=== PATIENT | male | born 1985 | race Caucasian/White ===

== ENCOUNTER 2018-11-15 00:59 | Inpatient (IN) | payer OTHER ==
[2018-11-15] MEDS ORDERED: NORMAL SALINE 1000 ML 1,000 ML IV ONE (03:50)
[2018-11-15] MEDS ORDERED: DIAZEPAM INJ 10 MG/2 ML DISP.SYRIN IV ONE ×3 (03:50→06:55)
[2018-11-15 04:08] LABS: ABSOLUTE EOSINOPHILS # (AUTO) 0.1 10^3/uL (0.0-0.6); ABSOLUTE LYMPHOCYTES (AUTO) 2.3 10^3/uL (0.5-4.7); ABSOLUTE MONOCYTES (AUTO) 0.6 10^3/uL (0.1-1.4); ABSOLUTE NEUT (AUTO) 5.3 10^3/uL (1.7-8.2); BASOPHILS % (AUTO) 0.5 % (0-2); EOSINOPHILS % (AUTO) 0.7 % (0-6); HEMATOCRIT 45.6 % (37.9-51.0); HEMOGLOBIN 16.1 g/dL (13.5-17.0); LYMPHOCYTES % (AUTO) 27.4 % (13-45); MEAN CORPUSCULAR HEMOGLOBIN 34.8 pg (27.0-33.4); MEAN CORPUSCULAR HGB CONC 35.3 g/dL (32.0-36.0); MEAN CORPUSCULAR VOLUME 99 fl (80-97); MONOCYTES % (AUTO) 7.1 % (3-13); PLATELET COUNT 306 10^3/uL (150-450); RED BLOOD COUNT 4.62 10^6/uL (4.35-5.55); SEGMENTED NEUTROPHILS % (AUTO) 64.3 % (42-78); TOTAL CELLS COUNTED % (AUTO) 100 %; WHITE BLOOD COUNT 8.3 10^3/uL (4.0-10.5)
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
[2018-11-15] MEDS ORDERED: LORAZEPAM INJ 2 MG/1 ML VIAL IV ONE (04:39)
[2018-11-15] MEDS ORDERED: THIAMINE HCL 100 MG, FOLIC ACID 1 MG in NORMAL SALINE 250 ML IV ONE (04:40)
[2018-11-15] MEDS ORDERED: FAMOTIDINE INJ/PF 20 MG/2 ML SDV IV ONE (05:06)
[2018-11-15] MEDS ORDERED: THIAMINE HCL INJ 200 MG/2 ML VIAL ONE (05:10)
[2018-11-15] MEDS ORDERED: FOLIC ACID INJ 5 MG/1 ML 10 ML VIAL ONE (05:13)
[2018-11-15] MEDS ORDERED: NICOTINE 21 MG/24 HR PATCH.TD24 TD ONE (05:31)
[2018-11-15] MEDS ORDERED: DIPH/PERTUSS(ACELL)/TETANUS VAC/PF 0.5 ML SYR (>=10YO) IM ONE (05:32)
[2018-11-15 06:26] LABS: APPEARANCE,URINE CLEAR; BILIRUBIN,URINE NEGATIVE (NEGATIVE); COLOR,URINE YELLOW; GLUCOSE, URINE NEGATIVE (NEGATIVE); KETONES,URINE NEGATIVE (NEGATIVE); LEUKOCYTE ESTERASE,URINE NEGATIVE (NEGATIVE); NITRITE,URINE NEGATIVE (NEGATIVE); PROTEIN,URINE 30 mg/dL (NEGATIVE); URINE SPECIFIC GRAVITY 1.027; UROBILINOGEN,URINE NEGATIVE mg/dL (<2.0)
[2018-11-15 06:39] LABS: URINE AMPHETAMINES SCREEN NEGATIVE; URINE BARBITURATES SCREEN NEGATIVE; URINE BENZODIAZEPINES SCREEN NEGATIVE; URINE COCAINE SCREEN NEGATIVE; URINE MARIJUANA (THC) SCREEN NEGATIVE; URINE METHADONE SCREEN NEGATIVE; URINE PHENCYCLIDINE SCREEN NEGATIVE
--- NOTE | 2018-11-15 07:09 | EKG REPORT ---
SEVERITY:- ABNORMAL ECG - SINUS TACHYCARDIA IVCD : Confirmed by: Eric De La Cruz MD 15-Nov-2018 07:08:30
[2018-11-15 07:48] LABS: ALANINE AMINOTRANSFERASE 31 U/L (21-72); ALBUMIN 4.1 g/dL (3.5-5.0); ALCOHOL 137 mg/dL (NONE DETECTED); ALKALINE PHOSPHATASE 104 U/L (38-126); ANION GAP 9 (5-19); ASPARTATE AMINO TRANSFERASE 42 U/L (17-59); BILIRUBIN,DIRECT 0.2 mg/dL (0.0-0.4); BILIRUBIN,TOTAL 0.4 mg/dL (0.2-1.3); BLOOD UREA NITROGEN 14 mg/dL (7-20); CALCIUM 8.6 mg/dL (8.4-10.2); CARBON DIOXIDE 26 mmol/L (22-30); CHLORIDE 110 mmol/L (98-107); GLUCOSE 93 mg/dL (75-110); SODIUM 145.4 mmol/L (137-145); TOTAL PROTEIN 6.9 g/dL (6.3-8.2)
[2018-11-15 07:49] LABS: ACETAMINOPHEN < 10 ug/mL (10-30)
[2018-11-15] MEDS ORDERED: ONDANSETRON HCL INJ/PF 4 MG/2 ML SDV IV PRN (09:32)
[2018-11-15] MEDS ORDERED: ACETAMINOPHEN 325 MG TABLET PO PRN (09:32)
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
[2018-11-15] MEDS ORDERED: LORAZEPAM INJ 2 MG/1 ML VIAL IV SCH (10:00)
[2018-11-15] MEDS: FAMOTIDINE 20 MG TABLET PO SCH ×2 (10:42→21:45)
[2018-11-15] MEDS: ENOXAPARIN SODIUM INJ 40 MG/0.4 ML DISP.SYRIN SUBCUT SCH (10:42)
[2018-11-15] MEDS: DIAZEPAM INJ 10 MG/2 ML DISP.SYRIN IV SCH ×6 (11:55→21:45)
[2018-11-15] MEDS: NORMAL SALINE 1000 ML 1,000 ML IV PRN (11:59)
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
[2018-11-15 12:35] LABS: URINE AMPHETAMINES SCREEN NEGATIVE; URINE BARBITURATES SCREEN NEGATIVE; URINE BENZODIAZEPINES SCREEN NEGATIVE; URINE COCAINE SCREEN NEGATIVE; URINE MARIJUANA (THC) SCREEN NEGATIVE; URINE METHADONE SCREEN NEGATIVE; URINE PHENCYCLIDINE SCREEN NEGATIVE
[2018-11-15] MEDS: LORAZEPAM INJ 2 MG/1 ML VIAL IV PRN ×2 (15:08→19:45)
[2018-11-15] MEDS: HYDROMORPHONE HCL INJ/PF 2 MG/ML AMPULE IV PRN (16:52)
--- NOTE | 2018-11-15 18:04 | RADIOLOGY REPORT (SQ) ---
EXAM DESCRIPTION: CT ABD/PELVIS NO ORAL OR IV COMPLETED DATE/TIME: 11/15/2018 5:42 pm REASON FOR STUDY: abd pain COMPARISON: None. TECHNIQUE: CT scan of the abdomen and pelvis performed without intravenous or oral contrast. Images reviewed with lung, soft tissue, and bone windows. Reconstructed coronal and sagittal MPR images revi ewed. All images stored on PACS. All CT scanners at this facility use dose modulation, iterative reconstruction, and/or weight based d osing when appropriate to reduce radiation dose to as low as reasonably achievable (ALARA). [facility]: Dose Right [facility]: CareDose [facility]: Dose Right [facility]: Teradose 4D [facility]: Smart Trips n Salsa RADIATION DOSE: CT Rad equipment meets quality standard of care and radiation dose reduction techniq ues were employed. CTDIvol: 13.2 mGy. DLP: 753 mGy-cm.mGy. LIMITATIONS: None. FINDINGS: LOWER CHEST: No significant findings. No nodules or infiltrates. NON-CONTRASTED LIVER, SPLEEN, ADRENALS: Evaluation limited by lack of IV contrast. No identified sign ificant masses. PANCREAS: No masses. No peripancreatic inflammatory changes. GALLBLADDER: Contracted. No stones. RIGHT KIDNEY AND URETER: No suspicious masses. Assessment limited by lack of IV contrast. No signif icant calcifications. No hydronephrosis or hydroureter. LEFT KIDNEY AND URETER: No suspicious masses. Assessment limited by lack of IV contrast. No signifi cant calcifications. No hydronephrosis or hydroureter. AORTA AND RETROPERITONEUM: No aneurysm. No retroperitoneal masses or adenopathy. BOWEL AND PERITONEAL CAVITY: Mild diverticulosis. No acute inflammation. No obvious bowel mass. APPENDIX: Normal. PELVIS, BLADDER, AND ABDOMINAL WALL:No abnormal masses. No free fluid. Bladder normal. BONES: No significant findings. OTHER: No other significant finding. IMPRESSION: Mild diverticulosis coli. No acute findings in the abdomen or pelvis. COMMENT: Quality ID # [id number]: Final reports with documentation of one or more dose reduction techniques (e.g., Automated exposure control, adjustment of the mA and/or kV according to patient size, use of iterative reconstruction technique) TECHNICAL DOCUMENTATION: JOB ID: [id number] [employer]- All Rights Reserved Reading location - IP/workstation name: [email or web address]
[2018-11-15] MEDS: NORMAL SALINE 1000 ML 1,000 ML with POTASSIUM CHLORIDE 20 MEQ, MAGNESIUM SULFATE 8 MEQ,... IV SCH ×5 (18:08)
[2018-11-15 18:21] LABS: LIPASE 107.7 U/L (23-300)
[2018-11-15] MEDS ORDERED: NICOTINE 7 MG/24 HR PATCH.TD24 TD ONE (22:45)
[2018-11-16] MEDS: DIAZEPAM INJ 10 MG/2 ML DISP.SYRIN IV SCH ×6 (00:30→11:07)
[2018-11-16] MEDS: HYDROMORPHONE HCL INJ/PF 2 MG/ML AMPULE IV PRN ×6 (00:50→23:25)
[2018-11-16] MEDS: LORAZEPAM INJ 2 MG/1 ML VIAL IV PRN ×6 (00:51→22:03)
[2018-11-16] MEDS ORDERED: PROMETHAZINE HCL INJ 25 MG/1 ML VIAL ONE (07:16)
[2018-11-16] MEDS: PROMETHAZINE HCL INJ 25 MG/1 ML VIAL IV PRN ×2 (07:25→15:22)
[2018-11-16] MEDS ORDERED: HYDROMORPHONE HCL INJ/PF 2 MG/ML AMPULE IV PRN (07:28)
[2018-11-16] MEDS ORDERED: LORAZEPAM INJ 2 MG/1 ML VIAL IV PRN (07:29)
[2018-11-16] MEDS ORDERED: HYDROMORPHONE HCL INJ/PF 2 MG/ML AMPULE ONE (07:29)
[2018-11-16 07:53] LABS: ABSOLUTE EOSINOPHILS # (AUTO) 0.1 10^3/uL (0.0-0.6); ABSOLUTE LYMPHOCYTES (AUTO) 1.3 10^3/uL (0.5-4.7); ABSOLUTE NEUT (AUTO) 4.5 10^3/uL (1.7-8.2); BASOPHILS % (AUTO) 0.3 % (0-2); EOSINOPHILS % (AUTO) 1.9 % (0-6); HEMATOCRIT 38.3 % (37.9-51.0); LYMPHOCYTES % (AUTO) 18.6 % (13-45); MEAN CORPUSCULAR HEMOGLOBIN 34.9 pg (27.0-33.4); MEAN CORPUSCULAR HGB CONC 34.9 g/dL (32.0-36.0); MEAN CORPUSCULAR VOLUME 100 fl (80-97); MONOCYTES % (AUTO) 14.1 % (3-13); PLATELET COUNT 238 10^3/uL (150-450); RED BLOOD COUNT 3.83 10^6/uL (4.35-5.55); SEGMENTED NEUTROPHILS % (AUTO) 65.1 % (42-78); TOTAL CELLS COUNTED % (AUTO) 100 %
[2018-11-16 07:55] LABS: HEMOGLOBIN 13.3 g/dL (13.5-17.0)
[2018-11-16 07:56] LABS: PROTHROMBIN TIME 12.7 SEC (11.4-15.4)
[2018-11-16 08:14] LABS: ALANINE AMINOTRANSFERASE 36 U/L (21-72); ALBUMIN 3.7 g/dL (3.5-5.0); ALKALINE PHOSPHATASE 103 U/L (38-126); ANION GAP 7 (5-19); ASPARTATE AMINO TRANSFERASE 45 U/L (17-59); BILIRUBIN,DIRECT 0.3 mg/dL (0.0-0.4); BILIRUBIN,TOTAL 1.1 mg/dL (0.2-1.3); BLOOD UREA NITROGEN 9 mg/dL (7-20); CALCIUM 9.1 mg/dL (8.4-10.2); CARBON DIOXIDE 24 mmol/L (22-30); CHLORIDE 109 mmol/L (98-107); CHOLESTEROL 174.56 mg/dL (0-200); GLUCOSE 93 mg/dL (75-110); POTASSIUM 3.6 mmol/L (3.6-5.0); SODIUM 140.3 mmol/L (137-145); TOTAL PROTEIN 6.2 g/dL (6.3-8.2); TRIGLYCERIDES 128 mg/dL (<150)
[2018-11-16 08:25] LABS: DIRECT LDL 117 mg/dL (<100)
[2018-11-16] MEDS: FAMOTIDINE 20 MG TABLET PO SCH ×2 (09:09→22:03)
[2018-11-16] MEDS: NICOTINE 7 MG/24 HR PATCH.TD24 TD SCH (09:09)
[2018-11-16] MEDS: ENOXAPARIN SODIUM INJ 40 MG/0.4 ML DISP.SYRIN SUBCUT SCH (09:10)
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
[2018-11-16] MEDS ORDERED: ONDANSETRON HCL INJ/PF 4 MG/2 ML SDV IV PRN (11:30)
[2018-11-16] MEDS: NORMAL SALINE 1000 ML 1,000 ML IV PRN (12:40)
[2018-11-16] MEDS: NORMAL SALINE 1000 ML 1,000 ML with POTASSIUM CHLORIDE 20 MEQ, MAGNESIUM SULFATE 8 MEQ,... IV SCH ×5 (17:41)
[2018-11-17] MEDS: LORAZEPAM INJ 2 MG/1 ML VIAL IV PRN ×6 (00:03→19:32)
[2018-11-17] MEDS ORDERED: CLONAZEPAM 1 MG TABLET PO PRN (02:03)
[2018-11-17] MEDS ORDERED: CLONAZEPAM 1 MG TABLET PO ONE (02:15)
[2018-11-17] MEDS: HYDROMORPHONE HCL INJ/PF 2 MG/ML AMPULE IV PRN ×5 (03:48→18:00)
[2018-11-17 05:42] LABS: ABSOLUTE EOSINOPHILS # (AUTO) 0.2 10^3/uL (0.0-0.6); ABSOLUTE LYMPHOCYTES (AUTO) 1.4 10^3/uL (0.5-4.7); ABSOLUTE MONOCYTES (AUTO) 0.8 10^3/uL (0.1-1.4); ABSOLUTE NEUT (AUTO) 4.2 10^3/uL (1.7-8.2); BASOPHILS % (AUTO) 0.3 % (0-2); EOSINOPHILS % (AUTO) 3.7 % (0-6); HEMATOCRIT 40.4 % (37.9-51.0); HEMOGLOBIN 13.9 g/dL (13.5-17.0); LYMPHOCYTES % (AUTO) 21.2 % (13-45); MEAN CORPUSCULAR HEMOGLOBIN 34.4 pg (27.0-33.4); MEAN CORPUSCULAR HGB CONC 34.3 g/dL (32.0-36.0); MEAN CORPUSCULAR VOLUME 100 fl (80-97); MONOCYTES % (AUTO) 12.3 % (3-13); PLATELET COUNT 230 10^3/uL (150-450); RED BLOOD COUNT 4.03 10^6/uL (4.35-5.55); RED CELL DISTRIBUTION WIDTH 13.1 % (11.5-14.0); SEGMENTED NEUTROPHILS % (AUTO) 62.5 % (42-78); TOTAL CELLS COUNTED % (AUTO) 100 %; WHITE BLOOD COUNT 6.7 10^3/uL (4.0-10.5)
[2018-11-17 06:07] LABS: ALANINE AMINOTRANSFERASE 47 U/L (21-72); ALBUMIN 4.3 g/dL (3.5-5.0); ALKALINE PHOSPHATASE 108 U/L (38-126); ANION GAP 9 (5-19); ASPARTATE AMINO TRANSFERASE 41 U/L (17-59); BILIRUBIN,DIRECT 0.3 mg/dL (0.0-0.4); BILIRUBIN,TOTAL 0.6 mg/dL (0.2-1.3); BLOOD UREA NITROGEN 12 mg/dL (7-20); CALCIUM 9.3 mg/dL (8.4-10.2); CARBON DIOXIDE 28 mmol/L (22-30); CHLORIDE 106 mmol/L (98-107); GLUCOSE 100 mg/dL (75-110); POTASSIUM 4.3 mmol/L (3.6-5.0); SODIUM 142.8 mmol/L (137-145)
[2018-11-17] MEDS: PROMETHAZINE HCL INJ 25 MG/1 ML VIAL IV PRN ×4 (07:57→21:09)
--- NOTE | 2018-11-17 09:21 | PDOC PROGRESS REPORT ---
Subjective Progress Note for:: 11/17/18 Subjective:: 11/16/2018 83-year-old male came to the hospital for anxiety and alcohol withdrawal symptoms. He still complaining of anxiety and agitation getting diazepam Ativan on regular basis, is also complaining of severe abdominal pain she is getting Dilaudid every 4 as needed. Patient is afebrile. No acute events in the last 24 hours. 11/17/2018-acute events in the last 24 hours. Afebrile. Last night he is complaining of increased anxiety IV 81 was switched to clonazepam but the patient states it is not helping him at all he wants to go back on Ativan IV every 2 hours. Reason For Visit: ALCOHOL WITHDRAWL Physical Exam Vital Signs: Temp Pulse Resp BP Pulse Ox 98.6 F 73 16 141/94 H 100 11/16/18 23:12 11/17/18 02:00 11/16/18 23:12 11/16/18 23:12 11/16/18 23:12 Intake & Output 11/16/18 11/17/18 11/18/18 06:59 06:59 06:59 Intake Total 1251.2 2674 Output Total 1060 Balance 1251.2 1614 Weight 101.7 kg 102.4 kg General appearance: PRESENT: no acute distress Head exam: PRESENT: atraumatic Eye exam: PRESENT: PERRLA Neck exam: ABSENT: carotid bruit, JVD, lymphadenopathy, thyromegaly Respiratory exam: PRESENT: clear to auscultation dina. ABSENT: rales, rhonchi, wheezes Cardiovascular exam: PRESENT: RRR. ABSENT: diastolic murmur, rubs, systolic murmur GI/Abdominal exam: PRESENT: normal bowel sounds, soft. ABSENT: distended, guarding, mass, organolmegaly, rebound, tenderness Extremities exam: PRESENT: full ROM. ABSENT: calf tenderness, clubbing, pedal edema Neurological exam: PRESENT: alert, awake, oriented to person, oriented to place, oriented to time, oriented to situation, CN II-XII grossly intact. ABSENT: motor sensory deficit Psychiatric exam: PRESENT: appropriate affect, normal mood. ABSENT: homicidal ideation, suicidal ideation Results Laboratory Results: 11/17/18 04:54 11/17/18 04:54 11/17/18 11/17/18 04:54 04:54 WBC 6.7 RBC 4.03 L Hgb 13.9 Hct 40.4 MCV 100 H MCH 34.4 H MCHC 34.3 RDW 13.1 Plt Count 230 Seg Neutrophils % 62.5 Lymphocytes % 21.2 Monocytes % 12.3 Eosinophils % 3.7 Basophils % 0.3 Absolute Neutrophils 4.2 Absolute Lymphocytes 1.4 Absolute Monocytes 0.8 Absolute Eosinophils 0.2 Absolute Basophils 0.0 Sodium 142.8 Potassium 4.3 Chloride 106 Carbon Dioxide 28 Anion Gap 9 BUN 12 Creatinine 0.93 Est GFR ( Amer) > 60 Est GFR (Non-Af Amer) > 60 Glucose 100 Calcium 9.3 Magnesium 2.2 Total Bilirubin 0.6 AST 41 ALT 47 Alkaline Phosphatase 108 Total Protein 7.0 Albumin 4.3 Impressions: Abdomen/Pelvis CT 11/15/18 00:00 IMPRESSION: Mild diverticulosis coli. No acute findings in the abdomen or pelvis. Assessment & Plan - Diagnosis (1) Alcohol withdrawal Qualifiers: Complication of substance-induced condition: uncomplicated Qualified Code(s): F10.230 - Alcohol dependence with withdrawal, uncomplicated Is this a current diagnosis for this admission?: Yes Plan: 11/15/2018-managed to put him in IMCU. Put him on regular diet IV fluids at 75 cc/h. Started on banana bag daily. Aspiration,fall ,seizure precautions were in place. Started on diazepam 5 mg IV every 2 hours as needed for agitation. Also started on Ativan 1 mg IV every 4 as needed for agitation. Watch for DTs. daily labs were requested. alcohol counseling was provided. Started on famotidine 20 mg p.o. twice daily for GI prophylaxis. Psych consult was requested. 11/16/2018-no acute events in the last 24 hours patient given the history of drinking half a gallon of vodka for the last 4-6 months so far no withdrawal symptoms are noticed he is on diazepam IV as needed and Ativan IV as needed patient states the hand is burning every time is getting the diazepam he prefers to be on Ativan every 2 hours as needed, I agreed with this request. He is also getting banana bag on daily basis. The labs are looking okay today. Psych cons ult was done they are going to follow the patient as an outpatient,no medication recommendations were made at this time. 11/17/2018-patient has history of heavy alcohol use. And be watching for DTs. He is complaining of anxiety and agitation last night. We are going to put him back on IV Ativan every 2 hours as needed. Is also getting banana bag daily. Labs are stable. Psych consult was done no new recommendations were made. plan is to continue the present management. (2) ADHD Is this a current diagnosis for this admission?: Yes Plan: 11/15/2018-patient is given the history of ADHD on Adderall at home. We do not have Adderall available in the pharmacy I spoke to the pharmacist the plan is to request a family members to bring the Adderall to the hospital, so we can restart the medication while he was in the hospital. 11/16/2018-patient has history of ADHD on Adderall at home unfortunately we do not have it in the formulary I spoke to the pharmacist and they agreed that patient can take his home medication. 11/17/2018-we do not have it at all in the pharmacy. Patient can take his home medications during the hospital stay. (3) Smoker Is this a current diagnosis for this admission?: Yes Plan: 11/15/2018-patient is a daily smoker, smoking counseling was provided for more than 10 minutes. Uncle advised to quit smoking. 11/16/2018-patient has history of chronic smoking is a nicotine patch smoking counseling was provided. 11/17/2018-history of chronic smoking was placed on nicotine patch 21 mg daily. (4) Depression Is this a current diagnosis for this admission?: Yes Plan: 11/15/2018-patient lost his 6 months ago. Started drinking heavily since then. Probably may be underlying depression. Psych consult was requested. Patient denies any depression symptoms. 11/16/2018-during the examination in the ER is complaining of depression because he is lost his a few months ago psych consult was done no medication recommendations were made. She denies any depression symptoms today. 11/17/2018 psych consult was done no medication recommendations were made. Zachary crane denies any depression symptoms. - Time Time Spent with patient: 15-24 minutes Smoking Cessation Education: over 10 minutes Medications reviewed and adjusted accordingly: Yes Anticipated discharge: Home
[2018-11-17] MEDS: FAMOTIDINE 20 MG TABLET PO SCH ×2 (09:48→21:09)
[2018-11-17] MEDS: NICOTINE 7 MG/24 HR PATCH.TD24 TD SCH (09:48)
[2018-11-17] MEDS: ENOXAPARIN SODIUM INJ 40 MG/0.4 ML DISP.SYRIN SUBCUT SCH (09:49)
[2018-11-17] MEDS: NORMAL SALINE 1000 ML 1,000 ML IV PRN (11:35)
[2018-11-17] MEDS: DIAZEPAM INJ 10 MG/2 ML DISP.SYRIN IV PRN ×2 (15:00→21:09)
--- NOTE | 2018-11-17 17:04 | EKG REPORT ---
SEVERITY:- NORMAL ECG - SINUS RHYTHM : Confirmed by: Eric De La Cruz MD 17-Nov-2018 17:03:36
[2018-11-17] MEDS: NORMAL SALINE 1000 ML 1,000 ML with POTASSIUM CHLORIDE 20 MEQ, MAGNESIUM SULFATE 8 MEQ,... IV SCH ×5 (19:39)
[2018-11-17] MEDS: DIAZEPAM 5 MG TABLET PO SCH (21:30)
[2018-11-17] MEDS ORDERED: KETOROLAC TROMETHAMINE 60 MG/2 ML SDV IM ONE (22:00)
[2018-11-17] MEDS: MORPHINE SULFATE 10 MG/ML INJ IV PRN (22:30)
[2018-11-18] MEDS: MORPHINE SULFATE 10 MG/ML INJ IV PRN ×8 (00:26→22:39)
[2018-11-18] MEDS: DIAZEPAM 5 MG TABLET PO SCH ×6 (01:02→22:46)
[2018-11-18] MEDS: KETOROLAC TROMETHAMINE INJ/PF 30 MG/1 ML SDV IV SCH ×3 (05:02→18:29)
--- NOTE | 2018-11-18 09:32 | PDOC PROGRESS REPORT ---
Subjective Progress Note for:: 11/18/18 Subjective:: 11/16/2018 83-year-old male came to the hospital for anxiety and alcohol withdrawal symptoms. He still complaining of anxiety and agitation getting diazepam Ativan on regular basis, is also complaining of severe abdominal pain she is getting Dilaudid every 4 as needed. Patient is afebrile. No acute events in the last 24 hours. 11/17/2018-acute events in the last 24 hours. Afebrile. Last night he is complaining of increased anxiety IV ATIVAN was switched to clonazepam but the patient states it is not helping him at all he wants to go back on Ativan IV every 2 hours. 09/2019-no acute events in the last 24 hours. Patient is afebrile. Last night he complained that Dilaudid is not working anymore and medication was changed to IV morphine. Patient is pain-free this morning. Reason For Visit: ALCOHOL WITHDRAWL Physical Exam Vital Signs: Temp Pulse Resp BP Pulse Ox 97.7 F 75 16 122/71 99 11/18/18 03:49 11/18/18 07:00 11/18/18 03:49 11/18/18 03:49 11/18/18 03:49 Intake & Output 11/17/18 11/18/18 11/19/18 06:59 06:59 06:59 Intake Total 2674 3474 Output Total 1060 2975 Balance 1614 499 Weight 102.4 kg 101.5 kg General appearance: PRESENT: no acute distress Head exam: PRESENT: atraumatic Eye exam: PRESENT: PERRLA Mouth exam: PRESENT: moist Teeth exam: PRESENT: poor dentation Neck exam: ABSENT: carotid bruit, JVD, lymphadenopathy, thyromegaly Respiratory exam: PRESENT: clear to auscultation dina. ABSENT: rales, rhonchi, wheezes Cardiovascular exam: PRESENT: RRR. ABSENT: diastolic murmur, rubs, systolic mu rmur GI/Abdominal exam: PRESENT: normal bowel sounds, soft. ABSENT: distended, guarding, mass, organolmegaly, rebound, tenderness Extremities exam: PRESENT: full ROM. ABSENT: calf tenderness, clubbing, pedal edema Neurological exam: PRESENT: alert, awake, oriented to person, oriented to place, oriented to time, oriented to situation, CN II-XII grossly intact. ABSENT: motor sensory deficit Psychiatric exam: PRESENT: appropriate affect, normal mood. ABSENT: homicidal ideation, suicidal ideation Results Laboratory Results: 11/17/18 04:54 11/17/18 04:54 Impressions: Abdomen/Pelvis CT 11/15/18 00:00 IMPRESSION: Mild diverticulosis coli. No acute findings in the abdomen or pelvis. Assessment & Plan - Diagnosis (1) Alcohol withdrawal Qualifiers: Complication of substance-induced condition: uncomplicated Qualified Code(s): F10.230 - Alcohol dependence with withdrawal, uncomplicated Is this a current diagnosis for this admission?: Yes Plan: 11/15/2018-managed to put him in IMCU. Put him on regular diet IV fluids at 75 cc/h. Started on banana bag daily. Aspiration,fall ,seizure precautions were in place. Started on diazepam 5 mg IV every 2 hours as needed for agitation. Also started on Ativan 1 mg IV every 4 as needed for agitation. Watch for DTs. daily labs were requested. alcohol counseling was provided. Started on famotidine 20 mg p.o. twice daily for GI prophylaxis. Psych consult was requested. 11/16/2018-no acute events in the last 24 hours patient given the history of drinking half a gallon of vodka for the last 4-6 months so far no withdrawal symptoms are noticed he is on diazepam IV as needed and Ativan IV as needed patient states the hand is burning every time is getting the diazepam he prefers to be on Ativan every 2 hours as needed, I agreed with this request. He is also getting banana bag on daily basis. The labs are looking okay today. Psych consult was done they are going to follow the patient as an outpatient,no medication recommendations were made at this time. 11/17/2018-patient has history of heavy alcohol use. And be watching for DTs. He is complaining of anxiety and agitation last night. We are going to put him back on IV Ativan every 2 hours as needed. Is also getting banana bag daily. Labs are stable. Psych consult was done no new recommendations were made. plan is to continue the present management. 11/18/2018-no acute events in the last 24 hours since yesterday patient is feeling little bit jittery with increased is 81 doses frequency to q. one hour as needed no issues after the his pain is also controlled still watching for the DTs discussed with the patient for more than 15 minutes need to cut down alcohol intake. Also advised him to follow-up with Alcoholic Anonymous group. Plan is to continue the present management. (2) ADHD Is this a current diagnosis for this admission?: Yes Plan: 11/15/2018-patient is given the history of ADHD on Adderall at home. We do not have Adderall available in the pharmacy I spoke to the pharmacist the plan is to request a family members to bring the Adderall to the hospital, so we can restart the medication while he was in the hospital. 11/16/2018-patient has history of ADHD on Adderall at home unfortunately we do not have it in the formulary I spoke to the pharmacist and they agreed that patient can take his home medication. 11/17/2018-we do not have it at all in the pharmacy. Patient can take his home medications during the hospital stay. 11/18/2018 patient has history of ADHD on Adderall. We do not carry that medication in the hospital here it is okay for me for the patient to take the home Adderall. (3) Smoker Is this a current diagnosis for this admission?: Yes Plan: 11/15/2018-patient is a daily smoker, smoking counseling was provided for more than 10 minutes. Uncle advised to quit smoking. 11/16/2018-patient has history of chronic smoking is a nicotine patch smoking counseling was provided. 11/17/2018-history of chronic smoking was placed on nicotine patch 21 mg daily. 11/18/2018 patient has a chronic history of smoking again today smoking counseling was provided strongly advised him to quit smoking. (4) Depression Is this a current diagnosis for this admission?: Yes Plan: 11/15/2018-patient lost his 6 months ago. Started drinking heavily since then. Probably may be underlying depression. Psych consult was requested. Patient denies any depression symptoms. 11/16/2018-during the examination in the ER is complaining of depression because he is lost his a few months ago psych consult was done no medication recommendations were made. She denies any depression symptoms today. 11/17/2018 psych consult was done no medication recommendations were made. Patient denies any depression symptoms. 11/18/2018-no complaints of depression during the hospital stay. Psych consult was done no medication recommendations. (5) Abdominal pain Is this a current diagnosis for this admission?: Yes Plan: 11/18/2018-patient is still complaining of abdominal pain she is getting Dilaudid and last night as per the patient is not working anymore presently he is on morphine IV. Plan is to continue the present management. - Time Time Spent with patient: 15-24 minutes Smoking Cessation Education: over 10 minutes Medications reviewed and adjusted accordingly: Yes Anticipated discharge: Home
[2018-11-18] MEDS: DIAZEPAM INJ 10 MG/2 ML DISP.SYRIN IV PRN ×8 (10:49→22:39)
[2018-11-18] MEDS: PROMETHAZINE HCL INJ 25 MG/1 ML VIAL IV PRN ×2 (13:21→22:40)
[2018-11-18] MEDS: ENOXAPARIN SODIUM INJ 40 MG/0.4 ML DISP.SYRIN SUBCUT SCH (13:24)
[2018-11-18] MEDS: FAMOTIDINE 20 MG TABLET PO SCH ×2 (13:24→22:40)
[2018-11-18] MEDS: NICOTINE 7 MG/24 HR PATCH.TD24 TD SCH (13:25)
[2018-11-18] MEDS: NORMAL SALINE 1000 ML 1,000 ML IV PRN (13:29)
[2018-11-18] MEDS ORDERED: DIPHENHYDRAMINE HCL 50 MG/ML VIAL ONE (15:20)
[2018-11-18] MEDS: NORMAL SALINE 1000 ML 1,000 ML with POTASSIUM CHLORIDE 20 MEQ, MAGNESIUM SULFATE 8 MEQ,... IV SCH ×5 (19:48)
[2018-11-18] MEDS: ADDERALL 10 MG PO SCH (22:52)
[2018-11-19] MEDS: KETOROLAC TROMETHAMINE INJ/PF 30 MG/1 ML SDV IV SCH ×3 (00:26→13:57)
[2018-11-19] MEDS: DIAZEPAM INJ 10 MG/2 ML DISP.SYRIN IV PRN ×5 (00:28→19:50)
[2018-11-19] MEDS: MORPHINE SULFATE 10 MG/ML INJ IV PRN ×7 (00:29→18:28)
[2018-11-19] MEDS: DIAZEPAM 5 MG TABLET PO SCH ×2 (02:38→05:27)
[2018-11-19] MEDS: ADDERALL 10 MG PO SCH ×3 (05:28→21:08)
[2018-11-19 05:59] LABS: ABSOLUTE EOSINOPHILS # (AUTO) 0.2 10^3/uL (0.0-0.6); ABSOLUTE LYMPHOCYTES (AUTO) 1.7 10^3/uL (0.5-4.7); ABSOLUTE MONOCYTES (AUTO) 0.9 10^3/uL (0.1-1.4); ABSOLUTE NEUT (AUTO) 5.2 10^3/uL (1.7-8.2); BASOPHILS % (AUTO) 0.3 % (0-2); EOSINOPHILS % (AUTO) 2.8 % (0-6); HEMATOCRIT 41.6 % (37.9-51.0); HEMOGLOBIN 14.5 g/dL (13.5-17.0); LYMPHOCYTES % (AUTO) 21.2 % (13-45); MEAN CORPUSCULAR HEMOGLOBIN 35.1 pg (27.0-33.4); MEAN CORPUSCULAR HGB CONC 34.8 g/dL (32.0-36.0); MEAN CORPUSCULAR VOLUME 101 fl (80-97); MONOCYTES % (AUTO) 10.7 % (3-13); PLATELET COUNT 215 10^3/uL (150-450); RED BLOOD COUNT 4.12 10^6/uL (4.35-5.55); RED CELL DISTRIBUTION WIDTH 13.1 % (11.5-14.0); TOTAL CELLS COUNTED % (AUTO) 100 %
[2018-11-19 06:27] LABS: ALANINE AMINOTRANSFERASE 63 U/L (21-72); ALBUMIN 4.5 g/dL (3.5-5.0); ALKALINE PHOSPHATASE 93 U/L (38-126); ANION GAP 5 (5-19); ASPARTATE AMINO TRANSFERASE 47 U/L (17-59); BILIRUBIN,DIRECT 0.2 mg/dL (0.0-0.4); BILIRUBIN,TOTAL 0.6 mg/dL (0.2-1.3); BLOOD UREA NITROGEN 13 mg/dL (7-20); CALCIUM 9.4 mg/dL (8.4-10.2); CARBON DIOXIDE 30 mmol/L (22-30); CHLORIDE 106 mmol/L (98-107); GLUCOSE 89 mg/dL (75-110); POTASSIUM 4.3 mmol/L (3.6-5.0); SODIUM 141.4 mmol/L (137-145)
--- NOTE | 2018-11-19 08:58 | PDOC PROGRESS REPORT ---
Subjective Progress Note for:: 11/19/18 Subjective:: 11/16/2018 83-year-old male came to the hospital for anxiety and alcohol withdrawal symptoms. He still complaining of anxiety and agitation getting diazepam Ativan on regular basis, is also complaining of severe abdominal pain she is getting Dilaudid every 4 as needed. Patient is afebrile. No acute events in the last 24 hours. 11/17/2018-acute events in the last 24 hours. Afebrile. Last night he is complaining of increased anxiety IV ATIVAN was switched to clonazepam but the patient states it is not helping him at all he wants to go back on Ativan IV every 2 hours. 11/18/2018-no acute events in the last 24 hours. Patient is afebrile. Last night he complained that Dilaudid is not working anymore and medication was changed to IV morphine. Patient is pain-free this morning. 11/19/2018-no acute events in the last 24 hours. Patient is afebrile. Patient complaining of lack of sleep last night. I started him on zolpidem 10 mg p.o. nightly. Reason For Visit: ALCOHOL WITHDRAWL Physical Exam Vital Signs: Temp Pulse Resp BP Pulse Ox 97.7 F 97 20 144/99 H 100 11/19/18 04:16 11/19/18 04:16 11/19/18 04:16 11/19/18 04:16 11/19/18 04:16 Intake & Output 11/18/18 11/19/18 11/20/18 06:59 06:59 06:59 Intake Total 3474 3834 Output Total 2975 1400 Balance 499 2434 Weight 101.5 kg 102.8 kg General appearance: PRESENT: no acute distress Head exam: PRESENT: atraumatic Eye exam: PRESENT: PERRLA Mouth exam: PRESENT: moist Neck exam: ABSENT: carotid bruit, JVD, lymphadenopathy, thyromegaly Respiratory exam: PRESENT: clear to auscultation dina. ABSENT: rales, rhonchi, wheezes Pulses: PRESENT: normal dorsalis pedis pul GI/Abdominal exam: PRESENT: normal bowel sounds, soft. ABSENT: distended, guarding, mass, organolmegaly, rebound, tenderness Extremities exam: PRESENT: full ROM. ABSENT: calf tenderness, clubbing, pedal edema Neurological exam: PRESENT: alert, awake, oriented to person, oriented to place, oriented to time, oriented to situation, CN II-XII grossly intact. ABSENT: motor sensory deficit Psychiatric exam: PRESENT: appropriate affect, normal mood. ABSENT: homicidal ideation, suicidal ideation Results Laboratory Results: 11/19/18 05:38 11/19/18 05:38 11/19/18 11/19/18 05:38 05:38 WBC 8.0 RBC 4.12 L Hgb 14.5 Hct 41.6 MCV 101 H MCH 35.1 H MCHC 34.8 RDW 13.1 Plt Count 215 Seg Neutrophils % 65.0 Lymphocytes % 21.2 Monocytes % 10.7 Eosinophils % 2.8 Basophils % 0.3 Absolute Neutrophils 5.2 Absolute Lymphocytes 1.7 Absolute Monocytes 0.9 Absolute Eosinophils 0.2 Absolute Basophils 0.0 Sodium 141.4 Potassium 4.3 Chloride 106 Carbon Dioxide 30 Anion Gap 5 BUN 13 Creatinine 0.82 Est GFR ( Amer) > 60 Est GFR (Non-Af Amer) > 60 Glucose 89 Calcium 9.4 Magnesium 2.5 H Total Bilirubin 0.6 AST 47 ALT 63 Alkaline Phosphatase 93 Total Protein 7.0 Albumin 4.5 Impressions: Abdomen/Pelvis CT 11/15/18 00:00 IMPRESSION: Mild diverticulosis coli. No acute findings in the abdomen or pelvis. Assessment & Plan - Diagnosis (1) Alcohol withdrawal Qualifiers: Complication of substance-induced condition: uncomplicated Qualified Code(s): F10.230 - Alcohol dependence with withdrawal, uncomplicated Is this a current diagnosis for this admission?: Yes Plan: 11/15/2018-managed to put him in IMCU. Put him on regular diet IV fluids at 75 cc/h. Started on banana bag daily. Aspiration,fall ,seizure precautions were in place. Started on diazepam 5 mg IV every 2 hours as needed for agitation. Also started on Ativan 1 mg IV every 4 as needed for agitation. Watch for DTs. daily labs were requested. alcohol counseling was provided. Started on famotidine 20 mg p.o. twice daily for GI prophylaxis. Psych consult was requested. 11/16/2018-no acute events in the last 24 hours patient given the history of drinking half a gallon of vodka for the last 4-6 months so far no withdrawal symptoms are noticed he is on diazepam IV as needed and Ativan IV as needed patient states the hand is burning every time is getting the diazepam he prefers to be on Ativan every 2 hours as needed, I agreed with this request. He is also getting banana bag on daily basis. The labs are looking okay today. Psych consult was done they are going to follow the patient as an outpatient,no medication recommendations were made at this time. 11/17/2018-patient has history of heavy alcohol use. And be watching for DTs. Alex asher is complaining of anxiety and agitation last night. We are going to put him back on IV Ativan every 2 hours as needed. Is also getting banana bag daily. Labs are stable. Psych consult was done no new recommendations were made. plan is to continue the present management. 11/18/2018-no acute events in the last 24 hours since yesterday patient is feeling little bit jittery with increased is 81 doses frequency to q. one hour as needed no issues after the his pain is also controlled still watching for the DTs discussed with the patient for more than 15 minutes need to cut down alcohol intake. Also advised him to follow-up with Alcoholic Anonymous group. Plan is to continue the present management. 11/19/2018-patient was admitted with alcohol level of 137 today is his fifth day of admission no evidence of seizures ,no evidence of alcohol withdrawals during the hospital stay. plan decreasing his diazepam to 10 mg every 8 hours as needed. And continue to watch for DTs. (2) ADHD Is this a current diagnosis for this admission?: Yes Plan: 11/15/2018-patient is given the history of ADHD on Adderall at home. We do not have Adderall available in the pharmacy I spoke to the pharmacist the plan is to request a family members to bring the Adderall to the hospital, so we can restart the medication while he was in the hospital. 11/16/2018-patient has history of ADHD on Adderall at home unfortunately we do not have it in the formulary I spoke to the pharmacist and they agreed that patient can take his home medication. 11/17/2018-we do not have it at all in the pharmacy. Patient can take his home medications during the hospital stay. 11/18/2018 patient has history of ADHD on Adderall. We do not carry that medicat ion in the hospital here it is okay for me for the patient to take the home Adderall. 11/19/2018-patient history of ADHD on Adderall restarted back his home medications last night. He said he is helping him to calm down. (3) Smoker Is this a current diagnosis for this admission?: Yes Plan: 11/15/2018-patient is a daily smoker, smoking counseling was provided for more than 10 minutes. Uncle advised to quit smoking. 11/16/2018-patient has history of chronic smoking is a nicotine patch smoking counseling was provided. 11/17/2018-history of chronic smoking was placed on nicotine patch 21 mg daily. 11/18/2018 patient has a chronic history of smoking again today smoking counseling was provided strongly advised him to quit smoking. 11/19/2018 patient is on nicotine patch daily. Plan is to continue the present medication. (4) Depression Is this a current diagnosis for this admission?: Yes Plan: 11/15/2018-patient lost his 6 months ago. Started drinking heavily since then. Probably may be underlying depression. Psych consult was requested. Patient denies any depression symptoms. 11/16/2018-during the examination in the ER is complaining of depression because he is lost his a few months ago psych consult was done no medication recommendations were made. She denies any depression symptoms today. 11/17/2018 psych consult was done no medication recommendations were made. Patient denies any depression symptoms. 11/18/2018-no complaints of depression during the hospital stay. Psych consult was done no medication recommendations. 11/19/2018-patient is given the history of depression psych consult was done during the hospital stay no medications recommendations were made. No signs of symptoms or signs of depression during this hospital stay. (5) Abdominal pain Is this a current diagnosis for this admission?: Yes Plan: 11/18/2018-patient is still complaining of abdominal pain she is getting Dilaudid and last night as per the patient is not working anymore presently he is on morphine IV. Plan is to continue the present management. 11/19/2018 patient saying abdominal pain is much better. I decreased the frequency of IV morphine to 1 mg every 4 hours as needed. - Time Time Spent with patient: 15-24 minutes Smoking Cessation Education: over 10 minutes Medications reviewed and adjusted accordingly: Yes Anticipated discharge: Home
[2018-11-19] MEDS: NICOTINE 7 MG/24 HR PATCH.TD24 TD SCH (09:19)
[2018-11-19] MEDS: FAMOTIDINE 20 MG TABLET PO SCH ×2 (09:19→21:08)
[2018-11-19] MEDS: ENOXAPARIN SODIUM INJ 40 MG/0.4 ML DISP.SYRIN SUBCUT SCH (09:19)
[2018-11-19] MEDS ORDERED: ZOLPIDEM TARTRATE 5 MG TABLET PO SCH (22:00)
[2018-11-20] MEDS: ADDERALL 10 MG PO SCH (05:26)
[2018-11-20 06:22] LABS: ABSOLUTE EOSINOPHILS # (AUTO) 0.2 10^3/uL (0.0-0.6); ABSOLUTE LYMPHOCYTES (AUTO) 1.8 10^3/uL (0.5-4.7); ABSOLUTE MONOCYTES (AUTO) 0.9 10^3/uL (0.1-1.4); BASOPHILS % (AUTO) 0.6 % (0-2); EOSINOPHILS % (AUTO) 3.1 % (0-6); HEMATOCRIT 38.9 % (37.9-51.0); HEMOGLOBIN 13.4 g/dL (13.5-17.0); LYMPHOCYTES % (AUTO) 26.3 % (13-45); MEAN CORPUSCULAR HEMOGLOBIN 34.8 pg (27.0-33.4); MEAN CORPUSCULAR HGB CONC 34.6 g/dL (32.0-36.0); MEAN CORPUSCULAR VOLUME 101 fl (80-97); MONOCYTES % (AUTO) 12.5 % (3-13); PLATELET COUNT 209 10^3/uL (150-450); RED BLOOD COUNT 3.87 10^6/uL (4.35-5.55); RED CELL DISTRIBUTION WIDTH 13.2 % (11.5-14.0); SEGMENTED NEUTROPHILS % (AUTO) 57.5 % (42-78); TOTAL CELLS COUNTED % (AUTO) 100 %
[2018-11-20 06:58] LABS: ALANINE AMINOTRANSFERASE 60 U/L (21-72); ALBUMIN 4.1 g/dL (3.5-5.0); ALKALINE PHOSPHATASE 82 U/L (38-126); ANION GAP 10 (5-19); ASPARTATE AMINO TRANSFERASE 40 U/L (17-59); BILIRUBIN,DIRECT 0.3 mg/dL (0.0-0.4); BILIRUBIN,TOTAL 0.7 mg/dL (0.2-1.3); BLOOD UREA NITROGEN 18 mg/dL (7-20); CALCIUM 9.2 mg/dL (8.4-10.2); CARBON DIOXIDE 26 mmol/L (22-30); CHLORIDE 104 mmol/L (98-107); GLUCOSE 95 mg/dL (75-110); SODIUM 139.5 mmol/L (137-145); TOTAL PROTEIN 6.5 g/dL (6.3-8.2)
--- NOTE | 2018-11-20 07:57 | PDOC DISCHARGE SUMMARY ---
General - Admit/Disc Date/PCP Admission Date/Primary Care Provider: 11/15/18 09:45 CROW SOW MD Discharge Date: 11/20/18 - Discharge Diagnosis (1) Alcohol withdrawal Is this a current diagnosis for this admission?: Yes Summary: 11/15/2018-managed to put him in IMCU. Put him on regular diet IV fluids at 75 cc/h. Started on banana bag daily. Aspiration,fall ,seizure precautions were in place. Started on diazepam 5 mg IV every 2 hours as needed for agitation. Also started on Ativan 1 mg IV every 4 as needed for agitation. Watch for DTs. daily labs were requested. alcohol counseling was provided. Started on famotidine 20 mg p.o. twice daily for GI prophylaxis. Psych consult was requested. 11/16/2018-no acute events in the last 24 hours patient given the history of drinking half a gallon of vodka for the last 4-6 months so far no withdrawal symptoms are noticed he is on diazepam IV as needed and Ativan IV as needed patient states the hand is burning every time is getting the diazepam he prefers to be on Ativan every 2 hours as needed, I agreed with this request. He is also getting banana bag on daily basis. The labs are looking okay today. Psych consult was done they are going to follow the patient as an outpatient,no medication recommendations were made at this time. 11/17/2018-patient has history of heavy alcohol use. And be watching for DTs. He is complaining of anxiety and agitation last night. We are going to put him back on IV Ativan every 2 hours as needed. Is also getting banana bag daily. Labs are stable. Psych consult was done no new recommendations were made. plan is to continue the present management. 11/18/2018-no acute events in the last 24 hours since yesterday patient is feeling little bit jittery with increased is 81 doses frequency to q. one hour as needed no issues after the his pain is also controlled still watching for the DTs discussed with the patient for more than 15 minutes need to cut down alcohol intake. Also advised him to follow-up with [facility]coholic Anonymous group. Plan is to continue the present management. 11/19/2018-patient was admitted with alcohol level of 137 today is his fifth day of admission no evidence of seizures ,no evidence of alcohol withdrawals during the hospital stay. plan decreasing his diazepam to 10 mg every 8 hours as needed. And continue to watch for DTs. 11/20/2018 patient was admitted with history of heavy alcohol use he is to drink 1/2 gallon of work every day for the last 4-6 months his alcohol level at the time of admission is 137. Admitted to watch for DTs. He was treated with IV diazepam as needed/IV ativan as needed during hosp stay no acute events during the hospital stay. He is sedative requirements are gradually decreased. Patient alert and oriented communicating well today not in distress at all. going to give a prescription for Ativan for a few days along with Percocets and I strongly advised him to follow-up with his primary care physician in 3-5 days he agreed and verbalized his response. (2) ADHD Is this a current diagnosis for this admission?: Yes Summary: 11/15/2018-patient is given the history of ADHD on Adderall at home. We do not have Adderall available in the pharmacy I spoke to the pharmacist the plan is to request a family members to bring the Adderall to the hospital, so we can restart the medication while he was in the hospital. 11/16/2018-patient has history of ADHD on Adderall at home unfortunately we do not have it in the formulary I spoke to the pharmacist and they agreed that patient can take his home medication. 11/17/2018-we do not have it at all in the pharmacy. Patient can take his home medications during the hospital stay. 11/18/2018 patient has history of ADHD on Adderall. We do not carry that medication in the hospital here it is okay for me for the patient to take the home Adderall. 11/19/2018-patient history of ADHD on Adderall restarted back his home medications last night. He said he is helping him to calm down. 11/20/2018-patient has history of ADHD be started him on his home Adderall medications no symptoms of withdrawal during the hospital stay. He was advised to continue with the same doses at home. (3) Smoker Is this a current diagnosis for this admission?: Yes Summary: 11/15/2018-patient is a daily smoker, smoking counseling was provided for more than 10 minutes. Uncle advised to quit smoking. 11/16/2018-patient has history of chronic smoking is a nicotine patch smoking counseling was provided. 11/17/2018-history of chronic smoking was placed on nicotine patch 21 mg daily. 11/18/2018 patient has a chronic history of smoking again today smoking counseling was provided strongly advised him to quit smoking. 11/19/2018 patient is on nicotine patch daily. Plan is to continue the present medication. 11/20/2018. Patient is a chronic and heavy smoker again advised him to quit smoking and smoking counseling was provided for more than 10 minutes. (4) Depression Is this a current diagnosis for this admission?: Yes Summary: 11/15/2018-patient lost his 6 months ago. Started drinking heavily since then. Probably may be underlying depression. Psych consult was requested. Patient denies any depression symptoms. 11/16/2018-during the examination in the ER is complaining of depression because he is lost his a few months ago psych consult was done no medication recommendations were made. She denies any depression symptoms today. 11/17/2018 psych consult was done no medication recommendations were made. Patient denies any depression symptoms. 11/18/2018-no complaints of depression during the hospital stay. Psych consult was done no medication recommendations. 11/19/2018-patient is given the history of depression psych consult was done during the hospital stay no medications recommendations were made. No signs of symptoms or signs of depression during this hospital stay. 11/20/2018-patient has history of depression psych evaluation done during the hospital stay no medications are recommended. (5) Abdominal pain Is this a current diagnosis for this admission?: Yes Summary: 11/18/2018-patient is still complaining of abdominal pain she is getting Dilaudid and last night as per the patient is not working anymore presently he is on morphine IV. Plan is to continue the present management. 11/19/2018 patient saying abdominal pain is much better. I decreased the frequen cy of IV morphine to 1 mg every 4 hours as needed. 11/20/2018-patient complains of severe abdominal pains during the hospital stay he was treated with IV morphine on as-needed basis. He denies any abdominal pains this morning. He agreed to go home on p.o. Percocets. - Additional Information Resuscitation Status: Full Code Discharge Diet: As Tolerated Discharge Activity: Activity As Tolerated Prescriptions: Alprazolam [Alprazolam Odt] 1 tab PO BID #10 tab Famotidine [Pepcid 20 mg Tablet] 20 mg PO Q12 #30 tablet Oxycodone HCl/Acetaminophen [Percocet 10-325 Mg Tablet] 1 each PO TID #20 tablet Home Medications: Dextroamphetamine/Amphetamine [Adderall 10 mg Tablet] 10 mg PO TID 11/15/18 Multivit-Min/Folic Acid/[id number] [Alive Women's Gummy Vitamins] 2 tab PO DAILY 11/15/18 Tramadol HCl [Ultram 50 mg Tablet] 100 mg PO QIDP PRN 11/15/18 Alprazolam [Alprazolam Odt] 1 tab PO BID #10 tab 11/20/18 Famotidine [Pepcid 20 mg Tablet] 20 mg PO Q12 #30 tablet 11/20/18 Oxycodone HCl/Acetaminophen [Percocet 10-325 Mg Tablet] 1 each PO TID #20 tablet 11/20/18 History of Present Illness History of Present Illness: MARTINEZ CARR is a 33 year old male 33-year-old male with history of ADHD and left knee pain came to the emergency room with complaints of anxiety. According to the patient is drinking around a half a gallon of vodka every day for the last 4-6 months, yesterday he is talking to the family members and Friends saying he cannot do this anymore means he wants to quit alcohol but concerned about anxiety and withdrawal symptoms came to the emergency room for further evaluation. Denies any seizure activity at home. Denies any previous admissions for similar complaint. denies any suicidal ideation. denies any suicidal thoughts. Denies any fever or denies any headaches and dizzy spells denies loss of consciousness denies any cough denies any nausea vomiting diarrhea or constipation. During the examination patient is alert awake oriented communicating very well. No signs of any anxiet y depression at the time of examination. Physical Exam Vital Signs: Temp Pulse Resp BP Pulse Ox 97.6 F 78 16 114/73 95 11/20/18 04:17 11/20/18 04:17 11/20/18 04:17 11/20/18 04:17 11/20/18 04:17 Intake & Output 11/19/18 11/20/18 11/21/18 06:59 06:59 06:59 Intake Total 3834 1853 Output Total 1400 Balance 2434 1853 Weight 102.8 kg 104.2 kg General appearance: PRESENT: no acute distress Head exam: PRESENT: atraumatic Eye exam: PRESENT: PERRLA Mouth exam: PRESENT: moist Neck exam: ABSENT: carotid bruit, JVD, lymphadenopathy, thyromegaly Respiratory exam: PRESENT: clear to auscultation dina. ABSENT: rales, rhonchi, wheezes Cardiovascular exam: PRESENT: RRR. ABSENT: diastolic murmur, rubs, systolic murmur GI/Abdominal exam: PRESENT: normal bowel sounds, soft. ABSENT: distended, g uarding, mass, organolmegaly, rebound, tenderness Extremities exam: PRESENT: full ROM. ABSENT: calf tenderness, clubbing, pedal edema Neurological exam: PRESENT: alert, awake, oriented to person, oriented to place, oriented to time, oriented to situation, CN II-XII grossly intact. ABSENT: motor sensory deficit Psychiatric exam: PRESENT: appropriate affect, normal mood. ABSENT: homicidal ideation, suicidal ideation Results Laboratory Results: 11/20/18 05:35 11/20/18 05:35 11/20/18 11/20/18 05:35 05:35 WBC 7.0 RBC 3.87 L Hgb 13.4 L Hct 38.9 MCV 101 H MCH 34.8 H MCHC 34.6 RDW 13.2 Plt Count 209 Seg Neutrophils % 57.5 Lymphocytes % 26.3 Monocytes % 12.5 Eosinophils % 3.1 Basophils % 0.6 Absolute Neutrophils 4.0 Absolute Lymphocytes 1.8 Absolute Monocytes 0.9 Absolute Eosinophils 0.2 Absolute Basophils 0.0 Sodium 139.5 Potassium 4.0 Chloride 104 Carbon Dioxide 26 Anion Gap 10 BUN 18 Creatinine 0.89 Est GFR ( Amer) > 60 Est GFR (Non-Af Amer) > 60 Glucose 95 Calcium 9.2 Magnesium 2.2 Total Bilirubin 0.7 AST 40 ALT 60 Alkaline Phosphatase 82 Total Protein 6.5 Albumin 4.1 Impressions: Abdomen/Pelvis CT 11/15/18 00:00 IMPRESSION: Mild diverticulosis coli. No acute findings in the abdomen or pelvis. Qualifiers - * PATIENT BEING DISCHARGED WITH ANY OF THE FOLLOWING DIAGNOSIS: No VTE patient discharged on overlapping Therapy?: Yes
[2018-11-20 08:06] VITALS: BP 154/92
[2018-11-20] MEDS: MORPHINE SULFATE 10 MG/ML INJ IV PRN (08:15)
== END 2018-11-20 09:43 | disposition home or self-care (01) | DRG 897 ==
LOC: ER 00:59 → EH 09:45 → 3W 15:45
PROVIDERS: ADMIT Internal Medicine; ATTEND Internal Medicine
PROC: HZ90ZZZ Pharmacotherapy for Substance Abuse Treatment, Nicotine Replacement (ICD-10-PCS; principal; 2018-11-15)
PROC: HZ2ZZZZ Detoxification Services for Substance Abuse Treatment (ICD-10-PCS; 2018-11-15)
PROC: 3E0234Z Introduction of Serum, Toxoid and Vaccine into Muscle, Percutaneous Approach (ICD-10-PCS; 2018-11-15)
DX: F10.230 Alcohol dependence with withdrawal, uncomplicated (principal); Y90.6 Blood alcohol level of 120-199 mg/100 ml; F90.9 Attention-deficit hyperactivity disorder, unspecified type; F17.210 Nicotine dependence, cigarettes, uncomplicated; F32.9 Major depressive disorder, single episode, unspecified; Z63.4 Disappearance and death of family member; Z23 Encounter for immunization; Z79.899 Other long term (current) drug therapy; Z88.8 Allergy status to other drugs, medicaments and biological substances
CPT/HCPCS: 36415; 74176; 80053; 80061; 80307; 81001; 82150; 82962; 83690; 83735; 85025; 85610; 90471; 90715; 93005; 93010; 96361; 96365; 96366; 96375; 96376; 99285; J1170; J1650; J1885; J2060; J2270; J2405; J2550; J3360; J3411; J3475; J3480; J3490; J7030; J7050; S0028